=== PATIENT | female | born 1955 | race Caucasian/White ===

== ENCOUNTER → 2018-08-21 | Day surgery (SDC) | payer OTHER, MEDICAID ==
[~2018-08-21] MED LIST: ACETAMINOPHEN-1 EAC1 PO; ACYCLOVIR 400400 MG PO; ANASPAZ0.125 MG SUBLING; BIOTIN10 MG PO; BUSPAR 5 MG TABL5 M1 PO; CALCIUM 500 +1 EAC5 PO; CALCIUM 600 +1 EAC6 PO; CENTRUM SILVER1 EAC4 PO; CLONAZEPAM 0.50.5 M1 PO; CYMBALTA30 MG PO; DEPAKOTE 250MG250 M1 PO; DEPAKOTE500 MG PO; DITROPAN XL10 M1 PO; FLEXERIL PO; FLONASE 0.05%50 MCG NASAL; FLOXIN OTI0.3 %/5 M1 OT; HYDROCHLOROTHIA25 M2 PO; HYDROCODON-ACE1 EA12 PO; IBUPROFEN 600600 M1 PO; IRON325 PO; LANSOPRAZOLE30 MG PO; LEVOTHROID75 MCG PO; LIPITOR 20 MG T20 M1 PO; LODINE400 MG PO; MS CONTIN15 MG PO; NAPROSYN500 MG PO; NEXIUM40 MG PO; NORCO 10-325 T1 EACH PO; NORCO 5-325 TA1 EAC1 PO; ONDANSETRON HCL4 M2 PO; PRINIVIL20 MG PO; PROAIR HFA8.5 GM INH; QUETIAPINE FUM100 MG PO; SEROQUEL 50 MG50 M1 PO; SINGULAIR 10 MG10 M1 PO; SKELAXIN 800 M800 M1 PO; SPIRIVA18 MCG INH; SYMBICORT160 MCG/4. INH; SYNTHROID100 MC1 PO; TOPROL XL100 MG PO; TRAMADOL 50 MG50 MG PO; TUMS PO; VALACYCLOVIR1000 MG PO; ZANAFLEX4 M1 PO; ZANAFLEX4 MG PO; ZANTAC 150MG T150 MG PO
[2018-08-21 09:21] LABS: HEMATOCRIT 41.5 % (37.0-47.0); HEMOGLOBIN 13.6 gm/dL (12.0-15.0); MCH 30.3 pg (26.0-34.0); MCHC 32.7 g/dL (28.0-37.0); MCV 92.9 fL (80.0-100.0); RBC 4.47 mil/uL (4.20-5.00); RDW-CV 15.7 % (10.5-14.5); WBC 11.9 thou/uL (4.0-11.0)
[2018-08-21 09:29] LABS: CALCIUM 10.1 mg/dL (8.5-10.1); CREATININE 1.5 mg/dL (0.6-1.3); POTASSIUM 4.4 mmol/L (3.5-5.1)
[2018-08-21 13:15] LABS: ALBUMIN 3.6 g/dL (3.4-5.0); DIRECT BILIRUBIN 0.1 mg/dL (<0.1-0.3); TOTAL BILIRUBIN 0.4 mg/dL (<0.1-1.0); TOTAL PROTEIN 6.9 g/dL (6.4-8.2)
--- NOTE | 2018-08-21 13:20 | EKG ---
[place] [address] ELECTROCARDIOGRAM REPORT Name: CLARK,EROS Aniket Room: [facility]#: [id number] Admission: 08/21/18 Attend Phys: Curry Ward DO Discharge: Date of : 53 Report #: [id number] THIS REPORT FOR: //name// [facility] Test Date: 2018-08-21 Test Time: 09:17:46 Pat Name: EROS RODAS Department: Room: Gender: F Healthcare Receptionist: : 1955 Requested By: Mason Madsen Order Number: [id number] Dov MD: Clemnete Castaneda Measurements Intervals Mims Rate: 70 P: 75 NE: 141 QRS: 60 QRSD: 89 T: 72 QT: 375 QTc: 405 Interpretive Statements Sinus rhythm Compared to ECG 07/09/2016 11:21:45 no change Electronically Signed On 08-21-2018 13:20:29 CDT by Clemente Castaneda [email or web address] <ELECTRONICALLY SIGNED> By: Clemente Castaneda MD, [facility] 08/21/18 1320 09 6 Clemente Castaneda MD, FACC /EPI
--- NOTE | 2018-08-22 17:07 | PATH ---
[address] [address] PATHOLOGY RPT PROCEDURE Name: EROS RODAS Room: [facility].#: [id number] Admission: 08/21/18 Date of : 53 Discharge: Report #: [id number] Path Case #: [id number] [facility] Accession Number: [id number] . 01 Material submitted: . DISTAL TRANSVERSE COLON POLYP-HOT SNARE . 01 Clinical history: . Pre-OP DX: Abdominal pain, GERD, personal history of colon polyps, family Post-OP DX: History of colon cancer, constipation . 02 Diagnosis: Distal transverse colon polyp (hot snare): - Tubular adenoma, negative for high-grade dysplasia. (AIDEN:paulo; 08/22/2018) MBMaria Isabel/08/22/2018 . 02 Electronically signed: . Juarez Neville MD, Pathologist NPI- [id number] . 01 Gross description: . Received in formalin labeled "Eros Rodas, distal transverse colon polyp-hot snare," is a 0.5 x 0.4 x 0.3 cm polypoid piece of espino soft tissue. The margin is inked and the specimen is sectioned perpendicular to the margin and entirely submitted in cassette A1. Upon sectioning, the specimen fragmented into 3 separate pieces. (TSD; 08/21/2018) TOB/TOB . 02 Pathologist provided ICD-10: D12.3 . 02 CPT . 164499 Specimen Comment: A courtesy copy of this report has been sent to Specimen Comment: [phone], . Specimen Comment: Report sent to / DR MIXON Performed at: 01 [facility] [address], [place], [place] [id number] MD Regino Bell MD Phone: [phone] Performed at: [address], [place], [place] [id number] MD Juarez Neville MD Phone: [phone]
== END | disposition home or self-care (01) ==
LOC: M.SUR 09:03
PROVIDERS: Internal Medicine Gastroenterology; Student in an Organized Health Care Education/Training Program
DX: D12.3 Benign neoplasm of transverse colon (principal); K57.30 Diverticulosis of large intestine without perforation or abscess without bleeding; K44.9 Diaphragmatic hernia without obstruction or gangrene; K22.8 Other specified diseases of esophagus; Z86.010 Personal history of colon polyps; Z80.0 Family history of malignant neoplasm of digestive organs; I12.9 Hypertensive chronic kidney disease with stage 1 through stage 4 chronic kidney disease, or unspecified chronic kidney disease; N18.3 Chronic kidney disease, stage 3 (moderate); E78.5 Hyperlipidemia, unspecified; E03.9 Hypothyroidism, unspecified; K21.9 Gastro-esophageal reflux disease without esophagitis; F32.9 Major depressive disorder, single episode, unspecified; E66.09 Other obesity due to excess calories; Z90.49 Acquired absence of other specified parts of digestive tract; Z98.890 Other specified postprocedural states; Z88.6 Allergy status to analgesic agent; Z88.8 Allergy status to other drugs, medicaments and biological substances; Z79.899 Other long term (current) drug therapy; Z79.891 Long term (current) use of opiate analgesic